=== PATIENT | female | born 1985 | race Caucasian/White ===

== ENCOUNTER 2023-10-18 09:34 | Emergency (ER) | payer OTHER, SELFPAY ==
--- NOTE | ~2023-10-18 | CT_ITS ---
EXAMINATION: CT abdomen pelvis w con DATE: 10/18/2023 12:48 INDICATION: Right upper quadrant abdominal pain. Nausea and vomiting. TECHNIQUE: Computed tomography (CT) of the abdomen and pelvis was performed with 100 mL Omnipaque 350 intravenous contrast. Automated exposure control and iterative reconstruction technique were employe d. The dose-length product was 1396.33 mGy-cm. COMPARISON: CT abdomen and pelvis 09/04/2016 FINDINGS: The visualized portions of the lung bases demonstrate mild atelectasis. No pleural effusion . The heart size is normal. No pericardial effusion. There is a 7 mm cyst in the liver. There is mild intrahepatic biliary duct dilatation. There is an internal biliary stent in expected position. There are changes of cholecystectomy. The spleen, pancreas, and right adrenal gland are normal. 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 There is cortical thinning of the kidneys. There is a 10 mm cyst in right kidney. There are no dilated loops of bowel. The appen harrison is normal. Aortic atherosclerosis is noted. There are no pathologically enlarged lymph nodes. The re is no free intraperitoneal fluid. There is mild thoracic spondylosis and severe lumbar spondylosis . IMPRESSION: 1. Mild intrahepatic biliary duct dilatation. Internal biliary stent in expected position. Reviewed, dictated and finalized at location A. INSPECTOR IMPRESSION: 1. Mild intrahepatic biliary duct dilatation. Internal biliary stent in expecte d position.
[2023-10-18 09:46] VITALS: BP 133/100; PULSE 108; RESP 14; TEMP 36.8; O2SAT 100
--- NOTE | 2023-10-18 10:34 | ED.ABDPAIN ---
HPI - Abdominal Pain General Chief Complaint: Abdominal Pain Stated Complaint: abd pain Time Seen by Provider: 10/18/23 09:41 History of Present Illness HPI narrative: 38-year-old female presented to the emergency department from [place]. Patient does have a prior history of cholecystectomy and reports he still has a stent in place. Patient was supposed to have the stent removed but never had follow-up. Patient states she developed increased right upper quadrant tenderness to palpation that feels similar to her previous gallbladder pain. Related Data Allergies Allergy/AdvReac Type Severity Reaction Status Date / Time amoxicillin AdvReac Mild Diarrhea Verified 10/18/23 09:54 Review of Systems Review of Systems: All systems reviewed & are unremarkable except as noted in HPI and below Exam Narrative: APPEARANCE: Well appearing, no pain, no distress, well-nourished. HEAD: normocephalic, atraumatic. EYES: PERRLA/EOMI, conjunctivae clear. NOSE: Normal no drainage EARS:TMS clear with good light reflex. THROAT: Pharynx clear, no exudate. NECK: Supple. No adenopathy, no masses. RESPIRATORY: Airway patent, respirations nonlabored. Clear to auscultation bilaterally, no rales, rhonchi, wheezing. CARDIOVASCULAR: Regular rate and rhythm without murmurs rubs or gallops. ABDOMINAL: Upper abdominal tenderness to palpation MUSCULOSKELETAL: Moves all extremities. Strength/ROM intact, No edema, No calf tenderness. NEURO: Alert. Cranial nerves II through XII intact. Grossly intact SKIN: Warm, dry. Normal Color Course Course Emergency Course: 38-year-old female presenting to the emergency department for evaluation of abdominal pain. Patient is afebrile with no leukocytosis. Patient has a stable hemoglobin. No elevated lactic acid AST ALT or lipase. Alk-phos is mildly elevated at 156. UA was abnormal an urine culture was ordered. Patient denies any urinary symptoms so she is not being treated for urinary tract infection. CT scan showed that the stent is in place and patient has no acute abnormalities. Patient was encouraged to have close follow-up with her GI physician.. Vital Signs Vital signs: Vital Signs Temperature 98.2 F 10/18/23 09:46 Pulse Rate 108 H 10/18/23 09:46 Respiratory Rate 14 10/18/23 09:46 Blood Pressure 133/100 H 10/18/23 09:46 Pulse Oximetry 100 10/18/23 09:46 Oxygen Delivery Room Air 10/18/23 09:46 Temperature 98.2 F 10/18/23 09:46 Pulse Rate 86 10/18/23 13:27 Respiratory Rate 18 10/18/23 13:27 Blood Pressure 168/101 H 10/18/23 13:27 Pulse Oximetry 99 10/18/23 13:27 Oxygen Delivery Room Air 10/18/23 09:46 MDM - Abdominal Pain Differential Diagnosis Differential diagnosis: Likely abdominal pain, constipation, gastroenteritis and small bowel obstruction Lab Data Attestation: I reviewed the patient's lab results. 10/18/23 10:39 10/18/23 10:39 Labs: Lab Results 10/18/23 10/18/23 Range/Units 10:28 10:39 WBC 5.3 (4.5-10.0) K/mm3 RBC 5.08 (4.2-5.4) M/mm3 Hgb 14.4 (12.0-15.0) g/dL Hct 44.0 (37.0-47.0) % MCV 86.6 (80-100) fl MCH 28.3 (26-34) pg MCHC 32.7 (32-36) g/dl RDW 12.1 (11.5-14.5) % Plt Count 194 (150-375) k/mm3 MPV 11.4 H (7.4-10.4) fl Immature Gran % (Auto) 0.6 H (0-0.5) % Neut % (Auto) 68.0 (45.5-73.1) % Lymph % (Auto) 24.8 (18.3-44.2) % [place] % (Auto) 5.5 (2.6-8.5) % Eos % (Auto) 0.9 (0-4.4) % Baso % (Auto) 0.2 (0.2-1.2) % Lymph # (Auto) 1.31 (0.9-3.2) K/mm3 [place] # (Auto) 0.3 (0.1-0.6) K/mm3 Eos # (Auto) 0.1 (0-0.3) K/mm3 Baso # (Auto) 0.0 (0.0-0.1) K/mm3 Abs Immat Gran (auto) 0.03 (0.00-0.031) K/mm3 Absolute Neuts (auto) 3.6 (1.3-6.7) K/mm3 Absolute Nucleated RBC 0.0 (0.0-0.012) K/mm3 Nucleated RBC % 0.0 (0.0-0.2) % Sodium 138 (137-145) mmol/L Potassium 4.0 (3.4-5.0) mmol/L Chloride 101 (98-107) mmol/L Car
[2023-10-18 10:38] LABS: Appearance Urine Cloudy (Clear); Bacteria Urine 1+ /hpf; Bilirubin Urine Negative (Negative); Blood Urine Negative (Negative); Color Urine Yellow (Yellow); Glucose Urine UA Negative (Negative); Ketones Urine Negative (Negative); Leukocyte Esterase Ur 3+ LEU/UL (Negative); Nitrate Urine Negative (Negative); Non Pathogenic Casts 0-2; Protein Urine Negative (Negative); RBC Urine 0-2 /hpf (0-2); Specific Grav Ur 1.012 (1.001-1.035); Squamous Epithelial Cell Urine Moderate /hpf (Few); Urobilinogen Urine 0.2 mg/dL (<2.0); WBC Urine 21-50 /hpf; pH Urine 6.5 (5.0-9.0)
[2023-10-18 10:39] LABS: Add Urine Microscopic? YES
[2023-10-18 10:40] VITALS: BP 138/94; PULSE 92; RESP 15; O2SAT 100
[2023-10-18 10:52] LABS: Basophils Percent Auto 0.2 % (0.2-1.2); Eosinophils Absolute Auto 0.1 K/mm3 (0-0.3); Eosinophils Percent Auto 0.9 % (0-4.4); Hemoglobin 14.4 g/dL (12.0-15.0); Immature Granulocyte Absolute 0.03 K/mm3 (0.00-0.031); Immature Granulocyte Percent A 0.6 % (0-0.5); Lymphocytes Absolute Auto 1.31 K/mm3 (0.9-3.2); Lymphocytes Percent Auto 24.8 % (18.3-44.2); Mean Corpuscular HGB Conc 32.7 g/dl (32-36); Mean Corpuscular Hemoglobin 28.3 pg (26-34); Mean Corpuscular Volume 86.6 fl (80-100); Mean Platelet Volume 11.4 fl (7.4-10.4); Monocytes Absolute Auto 0.3 K/mm3 (0.1-0.6); Monocytes Percent Auto 5.5 % (2.6-8.5); Neutrophils Absolute Auto 3.6 K/mm3 (1.3-6.7); Platelet Count Result 194 k/mm3 (150-375); Red Blood Count 5.08 M/mm3 (4.2-5.4); Red Cell Distribution Width 12.1 % (11.5-14.5); White Blood Count 5.3 K/mm3 (4.5-10.0)
[2023-10-18 11:03] LABS: Alanine Aminotransferase 17 U/L (6-35); Albumin Level 3.9 g/dL (3.5-5.1); Alkaline Phosphatase 156 U/L (38-126); Anion Gap 7 mmol/L (8-16); Aspartate Amino Transferase 25 U/L (14-36); Bilirubin,Total 0.3 mg/dL (0.2-1.3); Blood Urea Nitrogen 8 mg/dL (7-17); Calcium 8.9 mg/dL (8.4-10.2); Carbon Dioxide 30 mmol/L (22-30); Chloride 101 mmol/L (98-107); Estimated CRCL calculation 144 ml/min; Estimated Glomerular Filt Rate > 60; Glucose 150 mg/dL (65-110); Lipase 26 U/L (23-300); Sodium 138 mmol/L (137-145)
[2023-10-18 11:04] LABS: Lactic Acid Reflex 1.8 mmol/L (0.7-2.0)
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
[2023-10-18] MEDS: SODIUM CHLORIDE 0.9% IV 1,000 ML 999 ML IV CONT (11:18)
[2023-10-18 11:25] VITALS: BP 154/100; PULSE 90; RESP 18; O2SAT 100
[2023-10-18] MEDS: ACETAMINOPHEN 500 MG TABLET 1000 MG PO (12:07)
[2023-10-18 12:08] VITALS: BP 164/85; PULSE 76; RESP 17; O2SAT 100
[2023-10-18] MEDS: KETOROLAC 15 MG/ML VIAL (*BKC) IV PUSH (13:23)
[2023-10-18 13:27] VITALS: BP 168/101; PULSE 86; RESP 18; O2SAT 99
== END 2023-10-18 13:29 ==
PROVIDERS: Emergency Provider Emergency Medicine
DX: R10.11 Right upper quadrant pain (principal); Z90.49 Acquired absence of other specified parts of digestive tract; R93.2 Abnormal findings on diagnostic imaging of liver and biliary tract
CPT/HCPCS: 36415; 74177; 80053; 81001; 81025; 83605; 83690; 85025; 87086; 87088; 96361; 96374; 99284; A9270; J1885; J7030; Q9967